=== PATIENT | female | born 1940 | race Caucasian/White ===

== ENCOUNTER → 2018-06-20 05:00 | Outpatient (REF) | payer SELFPAY ==
[2018-06-20 08:44] LABS: Hemoglobin 10.9 g/dl (12.0-15.0); Mean Corp Hgb Conc 31.1 g/gl (32-36); Mean Corpuscular Hgb 28.2 pg (27.0-32.0); Mean Corpuscular Volume 90.4 fL (81-99); Mean Platelet Vol. 9.8 fl (6.2-12.0); Platelet Count 293 K/mm3 (150-450); RBC Distribution Width CV 20.1 % (11.6-14.6); RBC Distribution Width SD 63.9 fl (35.1-43.9); Red Blood Count 3.87 M/mm3 (4.2-5.4); White Blood Count 11.2 K/mm3 (4.4-11.0)
[2018-06-20 08:46] LABS: Differential Indicated MANUAL DIFF; POSITIVE COUNT YES; POSITIVE DIFFERENTIAL NO; POSITIVE MORPHOLOGY YES
[2018-06-20 08:47] LABS: International Normalized Ratio 3.3; Prothrombin Time (Protime)PT. 33.6 SECONDS (11.7-14.9)
[2018-06-20 09:11] LABS: Anion Gap 9 (5-15); BUN 31 mg/dL (7-18); BUN/Creat Ratio 29.5 RATIO (10-20); CPK Total, Creatine Kinase 28 U/L (26-192); Calcium,Total 8.8 mg/dL (8.5-10.1); Chloride 104 mmol/L (98-107); Creatinine, Serum 1.05 mg/dL (0.55-1.02); EST Glomerular Filtration Rate 54 mL/min (>60); Est Glom Filt Rate - Afr Amer 65 mL/min (>60); Glucose 113 mg/dL (74-106); Potassium 3.9 mmol/L (3.5-5.1); Sodium Level 137 mmol/L (136-145)
[2018-06-20 09:19] LABS: Lymphocyte 31 % (19-41); Monocyte 5 % (0-10); Neutrophil-Segmented 63 % (47-70); Promyelocyte 1 (0-0); Total Cells Counted 100 (MANUAL DIFF)
[2018-06-20 09:20] LABS: Platelet Estimate ADEQUATE (ADEQ)
[2018-06-20 09:21] LABS: Absolute Neutrophil Count 7.1 X10^3/uL (2.0-7.7)
[2018-06-20 09:22] LABS: Anisocytosis 1+; Red Cell Morphology N CHROM NORMAL (NORM C&C)
[2018-06-20 12:17] LABS: Pathologist Review Reviewed
== END ==
LOC: OLS.ACH 05:00
PROVIDERS: Visit Provider Family Medicine
DX: I48.0 Paroxysmal atrial fibrillation (principal); N32.3 Diverticulum of bladder; I10 Essential (primary) hypertension
CPT/HCPCS: 36415; 80048; 82550; 85025; 85610